=== PATIENT | female | born 1945 | race Caucasian/White ===

== ENCOUNTER 2017-09-03 12:12 | Emergency (ER) | payer MEDICARE, OTHER ==
[~2017-09-03] VITALS: Ht 152.4 cm; Wt 45.7 kg
[2017-09-03 12:15] VITALS: Ht 152.4 cm; Wt 45.7 kg
--- NOTE | 2017-09-03 13:17 | ERD ---
ER Documentation Chief Complaint Chief Complaint PAIN URINATION X 3 WEEKS HPI The patient is a 71-year-old female, presenting to the ER because of painful urination for the last 3 weeks. She was seen by a physician who treated her with Macrobid for the last 5 days, her symptoms is getting better but she complains of dizziness due to the medication Macrobid. She feels better after she is off the medication, denies blurred vision, neck pain, chest pain, dyspnea , abdominal pain, vomiting. She does not smoke nor drink Past medical history: History of peptic ulcer disease, asthma, fibromyalgia, IBS Past surgical history: Hysterectomy, bladder lift, ROS All systems reviewed and are negative except as per history of present illness. Allergies Allergies: Coded Allergies: No Known Allergy (Unverified , 09/03/17) Physical Exam Vitals Vital Signs Date Time Temp Pulse Resp B/P Pulse Ox O2 Delivery O2 Flow Rate FiO2 09/03/17 12:15 97.2 87 18 147/70 97 Physical Exam Const: No acute distress. Head: Atraumatic. Eyes: Normal Conjunctiva. ENT: Normal External Ears, Nose and Mouth. Neck: Full range of motion. No meningismus. Resp: Clear to auscultation bilaterally. Cardio: Regular rate and rhythm. Abd: Soft, non distended, normal bowel sounds, non tender. Skin: No petechiae or rashes. Back: No midline or flank tenderness. Ext: No cyanosis, or edema. Neur: Awake and alert. No focal deficit Psych: Normal Mood and Affect. Results 24 hrs Laboratory Tests Test 09/03/17 13:41 Bedside Urine pH (LAB) 5.5 Bedside Urine Protein (LAB) Negative Bedside Urine Glucose (UA) Negative Bedside Urine Ketones (LAB) Negative Bedside Urine Blood Negative Bedside Urine Nitrite (LAB) Negative Bedside Urine Leukocyte Esterase (L Negative Procedures/MDM MEDICAL MAKING DECISION: The patient is a 71-year-old female, presenting with recent acute cystitis. The dizziness is induced by Macrobid. The differential diagnoses considered include but are not limited to cholelithiasis, cholecystitis, cystitis, pancreatitis, hepatitis, gastritis, peptic ulcer disease, gastric ulcer, appendicitis, diverticulitis, cholangitis, choledocholithiasis, partial small bowel obstruction. Departure Diagnosis: Primary Impression: Dysuria Condition: Good Comments I advised her to stop the Macrobid The patient's blood pressure was elevated (>120/80) but appears stable without evidence of hypertension emergency or urgency. The patient was counseled about the risks of hypertension and urged to pursue outpatient monitoring and therapy within a week with their primary care physician. I discussed the findings with the patient. I advised the patient to follow-up with the primary physician in about 1-2 days, sooner if needed and return if any concern. Disclaimer: Inadvertent spelling and grammatical errors are likely due to EHR/ dictation software use and do not reflect on the overall quality of patient care. Also, please note that the electronic time recorded on this note does not necessarily reflect the actual time of the patient encounter. AGUSTÍN CLEMONS MD Sep 03, 2017 13:16
[2017-09-03 13:42] LABS: URINE BLOOD (Dip) POC Negative (NEGATIVE)
== END 2017-09-03 15:13 | disposition home or self-care (01) ==
LOC: FTE 12:12
DX: R30.0 Dysuria (principal); J45.909 Unspecified asthma, uncomplicated
CPT/HCPCS: 81003; 99282

== ENCOUNTER 2017-09-21 08:07 | Day surgery (SDC) | payer MEDICARE, OTHER ==
[~2017-09-21] VITALS: Ht 157.5 cm; Wt 45.6 kg
[2017-09-21 09:00] VITALS: BP 137/64; PULSE 66; RESP 24
[2017-09-21] MEDS ORDERED: FENTAnyl 50 MCG/ML VIAL ONE (09:04)
[2017-09-21] MEDS ORDERED: PROPOFOL 20 ML ONE (09:04)
[2017-09-21] MEDS ORDERED: VITAMINS (09:05)
[2017-09-21 09:12] VITALS: Ht 157.5 cm; Wt 45.6 kg
--- NOTE | 2017-09-21 09:51 | OPPN ---
Date/Time of Note Date/Time of Note DATE: 09/21/17 TIME: 09:49 Operative Report Preoperative Diagnosis Abdominal pain Chronic diarrhea Postoperative Diagnosis Hiatal hernia Gastroesophageal reflux disease Gastritis with erosions Internal hemorrhoids Operation/Procedure Performed Esophagogastroduodenoscopy and biopsy Colonoscopy and biopsy Surgeon see signature line assistant to the ceo None Anesthesia: MAC Estimated blood loss: none Transfusion Required none Specimen Gastric mucosal biopsy Random colon biopsy Grafts/Implants none Complications none MICHAEL RODRIGUEZ MD Sep 21, 2017 09:51
[2017-09-21 10:07] VITALS: BP 102/50; PULSE 69; RESP 24
--- NOTE | 2017-09-21 13:46 | GILP ---
DATE OF PROCEDURE: NAME OF PROCEDURES: 1. Esophagogastroduodenoscopy and biopsy. 2. Colonoscopy and biopsy. SURGEON: Michael Sousa MD PREOPERATIVE DIAGNOSES: 1. Abdominal pain. 2. Chronic diarrhea. POSTOPERATIVE DIAGNOSES: 1. Hiatal hernia. 2. Gastroesophageal reflux disease. 3. Gastritis with erosions. 4. Gastric mucosal biopsies were taken for Helicobacter pylori test. 5. Colonoscopy all the way to the cecum. 6. Internal hemorrhoids. 7. Random biopsies were taken to rule out microscopic colitis. INDICATION FOR THE PROCEDURE: Ms. Maria Teresa Damian is a 71-year-old female patient who had upp er abdominal pain, not responding to therapy. She also had chronic diarrhea. The procedures and possible complications are well explained to the patient. The patient understood and consented to the procedure. DESCRIPTION OF PROCEDURE: Under the influence of anesthesia, the gastroscope was carefully introduc ed into the esophagus and under direct vision, it was advanced to the stomach and through the pyloru s into the duodenal bulb and descending duodenum. FINDINGS: ESOPHAGUS: The patient had hiatal hernia and gastroesophageal reflux disease. STOMACH: She had gastritis with erosions. Gastric mucosal biopsies were taken for H. pylori test. DUODENUM: Normal. COLONOSCOPY: The colonoscope was carefully introduced in the rectum and under direct vision, it was advanced all the way to the cecum. FINDINGS: The patient had internal hemorrhoids. No colitis or neoplasm was identified. Random bio psies were taken to rule out microscopic colitis. The patient tolerated the procedures very well and there was no complication from the procedures. A t the end of the procedures, she was awake with stable vital signs and she was discharged home to e care of her family. IMPRESSION: Please see postoperative diagnosis. PLAN: 1. Omeprazole 40 mg p.o. q.a.m. 2. Imodium 2 mg p.o. t.i.d. p.r.n. for diarrhea. 3. Await histopathology reports. 4. Next screening colonoscopy in 10 years. Dictated By: MICHAEL AVILA/ELGIN Conf#: [id number] DID#: [id number]
--- NOTE | 2017-09-23 09:14 | CONS ---
DATE OF ADMISSION: 09/21/2017 DATE OF CONSULTATION: PATIENT NAME: SCOTTY GODINEZ TYPE OF CONSULTATION: Preoperative gastroenterology. Dear Dr. Granda: I thank you very much for this kind referral. Ms. Morel is a 71-year-old female patient who has been referred to me for further evaluation of abdominal pain and chronic diarrhea. The patient states she has got pain in the upper part as well as the lower part of the abdomen. The patient gives history of peptic ulcer disease. She is not taking any nonsteroidal anti-inflammatory agents. Her appetite has been poor and she states that she has been losing weight. No history of gallstones or liver disease. The patient also complains of lower abdominal pain and chronic diarrhea, no history of inflammatory bowel disease. She has history of colon polyps. She denies any history of rectal bleeding. Not a hypertensive or diabetic. No heart disease. Has history of bronchial asthma. No kidney disease. She is status post hysterectomy. Nonsmoker. No alcohol abuse. No family history of gastrointestinal tract neoplasm. No drug allergies. Negative for asthma. VITAL SIGNS: She is 5 feet 2 inches tall and weighs 100 pounds. BMI is 19, blood pressure is 104/70. HEART: Normal heart sounds. LUNGS: Clear. ABDOMEN: Soft. No masses. Normal bowel sounds. NEUROLOGIC: Normal neurological exam. IMPRESSION: 1. Upper abdominal pain, not responding to therapy. 2. History of peptic ulcer disease. 3. The patient also complains of loss of appetite and weight loss. 4. Lower abdominal pain with chronic diarrhea. 5. History of colon polyps. 6. Bronchial asthma. 7. Status post hysterectomy. PLAN: 1. Abdominal and pelvic ultrasound for further evaluation of abdominal pain. 2. Endoscopy and colonoscopy for further evaluation. The procedures and possible complications are well explained to the patient. She understands and consents to the procedures. I thank you once again. With warmest personal regards, Dictated By: MICHAEL AVILA/ELGIN Conf#: [id number] DID#: [id number] AMELIA
== END 2017-09-21 11:44 | disposition home or self-care (01) ==
LOC: GIL 08:07
PROVIDERS: ATTEND Internal Medicine Gastroenterology
DX: K44.9 Diaphragmatic hernia without obstruction or gangrene (principal); K21.9 Gastro-esophageal reflux disease without esophagitis; K64.8 Other hemorrhoids; Z86.010 Personal history of colon polyps; J45.909 Unspecified asthma, uncomplicated
CPT/HCPCS: 43239; 45380; 87081; 88305; J3010

== ENCOUNTER 2017-10-11 14:19 | Emergency (ER) | END 2017-10-12 01:45 | disposition home or self-care (01) ==

== ENCOUNTER → 2019-02-21 | Outpatient (CLI) | payer MEDICARE, OTHER ==
[~2019-02-21] MED LIST: VITAMINS
== END | disposition home or self-care (01) ==
LOC: C/S 10:59
PROVIDERS: ATTEND Family Medicine
DX: R22.9 Localized swelling, mass and lump, unspecified (principal)
CPT/HCPCS: 71250